=== PATIENT | male | born 1950 | race Caucasian/White ===

== ENCOUNTER 2025-04-13 12:41 | Emergency (ER) | payer MEDICARE, SELFPAY ==
[2025-04-13] VITALS (12 sets, daily range): BP systolic 150–189; BP diastolic 87–125
--- NOTE | 2025-04-13 13:00 | EDRN ---
Pt states he was attempting to move a table and tying up the legs prior to moving it. Pt states he found his L hand numb and unable to make a fist at constance 12:30 and lasted 5 minutes. After that was normal his L mouth and tongue became numb. Pt states
that lasted about 10 minutes. Pt was also diaphoretic during that time. Pt states has no symptoms at this time.
[2025-04-13 13:10] LABS: Glucose - Point of Care 96 mg/dl (70-99)
--- NOTE | 2025-04-13 13:11 | ED.GENMED ---
History of Present Illness
General
Chief Complaint: Numbness
Source: patient and other (Significant other)
Exam Limitations: none
Time Seen by Provider: 04/13/25 12:56
Nursing documentation reviewed up to this point in time: agreed with
History of Present Illness
History of Present Illness:
Patient with history of BPH, presents to ED secondary to sudden onset of left arm/hand numbness/weakness while he was sitting down working, around 12:30 PM. Symptoms lasted about 10 minutes with spontaneous resolution. Shortly afterwards, patient
noticed left facial and tongue numbness sensation, which also lasted approxi-10 to 15 minutes with spontaneous resolution. At the time of evaluation ED, patient is only complaining of 'funny feeling' in his left pinky finger. Denies headache.
Denies dizziness. Denies difficulty with ambulation. Denies difficulty with speech. Denies recent illness. Patient proceeded to take 325 mg aspirin prior to arrival. Denies previous history of similar symptoms. Denies recent illness.
Review of Systems
Review of Systems
Allergies reviewed?: Yes
All Other Systems: ROS reviewed and negative except as documented in HPI and ROS
Constitutional: Reports no symptoms
Respiratory: Reports no symptoms
Cardiac: Reports no symptoms
ABD/GI: Reports no symptoms
Musculoskeletal: Reports no symptoms
Skin: Reports no symptoms
Neurological: Reports weakness and numbness; Denies dizzy or headache
Phy Exam
Physical Exam
Physical Exam:
Physical Exam
General: no apparent distress, not acutely ill. afebrile
Head: nc/at. eomi
Neck: supple. normal range of motion
Heart: s1/s2 regular rate and rhythm.
Lungs: no acute respiratory distress. clear bilaterally
Abdomen: normal bowel sounds. not tender.
Neuro: alert and oriented x 3. no focal sensory/motor deficit. normal speech. no facial droop
Skin: no rash
Psychiatric: well kept. interactive and cooperative
Extremities: no edema. no calf tenderness.
Course
Orders/Labs/Results
Orders:
Orders
04/13/25 12:55
Electrocardiogram (*1) Urgent
Reason for Study: Chest Pain
Cardiac Monitoring- Treatment ONCE
04/13/25 12:56
EKG- Treatment ONCE
04/13/25 13:06
Cardiovascular Evaluation Urgent
Comment: ADD ON
Complete Blood Count/With Diff Urgent
Comprehensive Metabolic Panel Urgent
Ferritin Urgent
Comment: ADD ON
Folate Urgent
Comment: ADD ON
Glycohemoglobin (HgbA1c) Urgent
Prothrombin Time Urgent
TSH Reflex To Free T4 Urgent
Comment: ADD ON
Troponin I Urgent
Vitamin B12 Urgent
Comment: ADD ON
04/13/25 13:09
CT HEAD STROKE ALERT W/o Cont Urgent
Comment:
Reason For Exam: LUE weakness/numbness, l facial numbness
04/13/25 13:13
CT HEAD/NECK ANG STROKE ALERT Urgent
Comment:
Reason For Exam: left-sided numbness
04/13/25 13:37
Clopidogrel Bisulfate [Plavix] 300 mg PO NOW STA
04/13/25 13:38
MR Brain Without Contrast Routine
Comment:
Reason For Exam: Left-sided numbness, weakness
Recent pill cam endoscopy?: No
04/13/25 13:40
Patient Education As Directed
Type: Stroke education packet
04/13/25 15:07
Add On- LAB Routine
Tests Added?: folate, ferritin, TSH reflex, B12, lipid profile, hbA1c
04/13/25 18:00
Atorvastatin [Lipitor] 40 mg PO QPM
04/14/25 08:00
Aspirin Chewable [Low Strength Aspirin] 81 mg PO DAILY
Clopidogrel Bisulfate [Plavix] 75 mg PO DAILY
Abnormal Lab Results
04/13/25
13:06
RBC 4.41 L 10^6/uL
(4.70-6.10)
MCV 95.7 H fL
(80.0-94.0)
MCH 32.7 H pg
(27.0-31.0)
Monocytes % 11.1 H %
(1.7-9.3)
Glucose 103 H mg/dl
(70-99)
Total Cholesterol 207 H mg/dl
(50-199)
04/13/25 13:06
04/13/25 13:06
Vital Signs
Initial and Last Documented VS:
Initial Vital Signs
Temp Pulse Resp BP Pulse Ox
98.2 F 67 16 185/111 98
04/13/25 12:49 04/13/25 12:49 04/13/25 12:49 04/13/25 12:49 04/13/25 12:49
Last Documented Vital Signs
Temp Pulse Resp BP Pulse Ox
98.2 F 65 13 174/102 99
04/13/25 12:49 04/13/25 16:15 04/13/25 16:15 04/13/25 16:05 04/13/25 18:00
MDM/Problems Addressed
MDM/Problems Addressed:
CT head: No acute findings.
Patient evaluated in ED by Dr. Capellan, neurology. Recommends obtaining MRI brain without contrast. If negative and patient remains asymptomatic, patient can be discharged home with following recommendations: 81 mg aspirin, Plavix 75 mg daily x 3
weeks, along with Lipitor 40 mg, as well as outpatient f/u with pmd/neurology, including outpatient echocardiogram. Recommendations provided to patient/spouse prior to discharge
*Pulse Oximetry
SaO2: 98
Oxygen Mode of Delivery: Room air
Patient hypoxic: no
*EKG
Interpreted by ED Provider?: Yes
EKG Intrepretation Date: 04/13/25
Heart Rate: 63
Rate: normal
Rhythm: sinus
[place]: normal axis
*Critical Care Note
Total Time (30-74mins, 75-104mins- exclusive of procedures): Not Applicable
ED Attending Note
-
Portions of this chart may have been created with voice recognition software.� Occasional wrong word or��sound alike� substitutions may have occurred due to the inherent limitations of voice recognition software.
Discharge Plan
Departure
Patient Disposition: Home (Routine Discharge)
Date of Disposition: 04/13/25
Time of Disposition: 19:11
Patient with high blood pressure during this ER visit?: Yes
Condition: Fair
Discharge Problem:
Brain TIA
Instructions: Transient ischemic attack - ED (DC)
Prescriptions:
New
clopidogrel [Plavix] 75 mg tablet
75 mg PO DAILY Qty: 20 0RF
atorvastatin [Lipitor] 40 mg tablet
40 mg PO DAILY Qty: 30 0RF
No Action
tamsulosin 0.4 mg capsule
0.4 mg PO DAILY
finasteride 5 mg tablet
5 mg PO DAILY
sildenafil 25 mg Tablet
25 mg PO DAILY PRN (Reason: ED)
Referrals:
Danial Selby MD [Active, Neurology]
Wilman Theodore MD [Family Provider, Internal Medicine]
Activity Restrictions/Additional Instructions:
As discussed, please follow-up with your primary care physician and/or referred neurologist for further evaluation and treatment. Please continue to take 81 mg aspirin and Lipitor 40 mg daily along with prescribed Plavix medication x 3 weeks. Your
prescriptions have been sent electronically to [facility] in [place].
Interventions
Interventions:
*Risk Screen - Suicide Last Done: 04/13/25 12:49
*General Assessment Last Done: 04/13/25 19:34
*Neglect/Abuse Screening Last Done: 04/13/25 12:49
*ED- Fall Risk Assessment Last Done: 04/13/25 19:34
*ED COVID-19 Vaccine History Last Done: 04/13/25 19:34
*ED Influenza Vaccine History Last Done: 04/13/25 19:34
*Nursing Disposition Last Done: 04/13/25 19:35
ED- Neurological Assessment Last Done: 04/13/25 13:39
Discharge Date and Time
Discharge Date/Time: 04/13/25 19:35
Print Language: RUSSIAN
--- NOTE | 2025-04-13 13:14 | CON.NEURO4 ---
Addendum entered and electronically signed by Clive Schumacher MD 04/13/25 19:48:
I have seen and examined the patient today along with the nurse practitioner Stefani Patrick and I agree with her assessment and the management plan. The following is my assessment and the management plan.
The patient is a 74 years old male who presented to the hospital with complaint of numbness of left side of the face and left arm along with numbness of the left side of the tongue. The last known normal was at around 12:30 PM today. This
patient's symptoms resolved within about 5 to 10 minutes. On arrival the patient's blood pressure was 185/111. CT head and CTA of head and neck were unremarkable. The NIH stroke scale was 0. He was not a candidate for TNK due to the NIH stroke
scale being 0, and also there was no large vessel occlusion seen.
Neurologic examination:
The patient is alert and oriented x 3,
Speech is clear,
The cranial nerves II to XII are grossly intact,
The motor strength is grossly 5/5 bilaterally,
The sensations are grossly intact,
The cerebellar examination does not show limb ataxia.
The patient likely had a transient ischemic attack. The patient had uncontrolled hypertension when he arrived in the ER. The MRI of the brain did not show an acute intracranial abnormality. The plan is to discharge the patient home on aspirin 81
mg daily, Plavix 75 mg daily and atorvastatin 40 mg daily. The patient will follow-up in the neurology clinic and will have an echocardiogram done as an outpatient. The patient's case was discussed with Dr. Yuri Lara in the ER.
Original Note:
Consultation - Neurology 4
-
CONSULTING PHYSICIAN: Clive Schumacher MD
REFERRING PHYSICIAN: ER/Dr. Lara
DICTATED BY: ROXANNE Kearns
DATE/TIME OF REQUEST: 04/13/25
DATE/TIME OF CONSULTATION: 04/13/25
Reason for Consultation: Stroke Alert
History of Present Illness:
This is a 74-year-old right-handed male who has presented to the hospital with report of transient left tongue and hand paresthesias and weakness. Patient reports that he was in his usual state today when around 1230 he was tying up legs to a table
when suddenly his left hand began tingling and he could not make a fist. This resolved after 5 minutes but then his left face and left side of his tongue started tingling as well, this resolved again after 5 minutes. He took a full dose aspirin at
home. Blood pressure was 185/[address] head and CTA head/neck were obtained on arrival and are negative for any acute abnormalities. NIHSS is currently 0. He is not a candidate for TNK/IAT due to NIHSS 0 and no LVO. Patient denies any
headache, dizziness, vision changes, speech/swallow difficulty. He denies any history of TIA, stroke, or migraine with aura.
Past Medical History: BPH, erectile dysfunction, HLD
Surgical History: MILD, cyst removal
Family History: Reviewed and noncontributory.
Social History: Denies tobacco, alcohol, and illicit drug use.
Allergies: No known allergies.
Home Medications: See below.
Review of Symptoms:
Patient denies any fever, headache, chest pain, shortness of breath, GI or symptoms.
�Per the HPI.�All systems are reviewed negative except above.
Physical Exam:
The patient is afebrile, abdomen is nondistended, breathing is unlabored, skin is warm and dry, no edema.
NIH Stroke Scale:
I performed the NIH stroke scale on the patient on 04/13/25 at 1320. The patient scored 0 points on the NIH stroke scale assessment, which were assigned as follows: See below.
Neurologic Examination:
The patient is awake, alert and oriented x 3. He is able to follow commands and answer questions appropriately. There is no aphasia or dysarthria. On cranial nerve assessment, pupils are 3 mm bilateral, round and reactive to light and
accommodation. Visual larry are full. Extraocular movements are intact. Facial sensations are intact and bilaterally symmetrical, there is no facial asymmetry. Hearing is intact bilaterally to normal conversation volume. Tongue palate and uvula are
midline. Sternocleidomastoid strengths are full bilaterally. Motor strengths are 5/5 bilateral upper and lower extremities on medical research [place] scale. There is no drift or involuntary movement noted. There was no extinction noted on double
simultaneous stimulation. Coordination is intact by finger to nose bilaterally.
Lab Results: See below.
Neuro Imaging:
1. CT Head 04/13/25: No evidence of acute intracranial abnormality. ASPECT score: 10.
2. CTA head/neck 04/13/25: No evidence for hemodynamically significant stenoses involving the common carotid arteries, carotid bulbs, or proximal internal carotid arteries bilaterally. No significant narrowing involving the vertebral or basilar
arteries. No evidence for intracranial high-grade stenosis/large vessel occlusion.
Differentials for the patient's presentation include:
1. Transient left-sided paresthesias and weakness; etiology is likely transient ischemic attack, cannot entirely exclude a small ischemic stroke.
2. Hypertensive urgency.
Patient has the following risk factors for their symptoms: Uncontrolled HTN, HLD, age
IV Tenecteplase/IAT candidacy: Not a candidate due to resolution of symptoms, low NIHSS.
Recommendations:
-Provide clopidogrel 300mg x1 now. Continue DAPT with aspirin 81mg and clopidogrel 75mg daily for 21 days. After 21 days, stop clopidogrel and continue aspirin 81mg daily monotherapy.
-Permissive hypertension SBP<220, DBP<120 until 04/14/25 at 1230, then goal normotension.
-MRI brain noncontrast pending.
-LDL goal <70. Lipid panel is pending. Initiate atorvastatin 40mg daily.
-Goal normoglycemia, hbA1c is pending.
-Checking blood work for metabolic abnormalities.
-NIHSS and neurological checks per unit guidelines.
-Provide patient with a stroke education packet.
-DVT prophylaxis.
Discussed patient care with: Dr. Schumacher, the patient, patient's spouse
Vital Signs and Labs
-
Vital Signs and Labs:
Vital Signs
Temp Pulse Resp BP Pulse Ox
98.2 F 67 16 185/111 98
04/13/25 12:49 04/13/25 12:49 04/13/25 12:49 04/13/25 12:49 04/13/25 13:14
NIH Stroke Score
Subsequent NIH Scale
Date of Subsequent NIH Scale: 04/13/25
Time of Subsequent NIH Scale: 13:20
NIH Stroke Score
Level of Consciousness: 0 - Alert
LOC Questions: 0-Answers both correctly
LOC Commands: 0-Performs both correctly
Best Horizontal Gaze: 0-Normal
Visual Larry: 0=Normal, no visual loss
Facial Palsy: 0=Normal, symmetrical
Motor - Right Arm: 0=No drift 10 seconds
Motor - Left Arm: 0=No drift 10 seconds
Motor - Right Le-No drift 5 seconds
Motor - Left Le-No drift 5 seconds
Limb Ataxia: 0-Absent
Sensation: 0-Normal
Best Language: 0-No aphasia
Dysarthria: 0-Normal
Extinction and Inattention: 0-No abnormality
NIH Total Score:: 0
Modified [place] (mRS) Score
Modified [place] Scale (mRS): No symptoms
Score: 0
Alteplase Contraindication
Inclusion and Exclusion criteria reviewed: Yes
--- NOTE | 2025-04-13 13:28 | EDRN ---
Dr. Schumacher saw pt in CT though did not examine pt, In room now assessing pt. Dr. Jane Briseno.
[2025-04-13] MEDS: PLAVIX 300 MG PO (13:44)
[2025-04-13 13:45] LABS: Hematocrit 42.2 % (39.0-52.0); Hemoglobin 14.4 g/dL (13.0-18.0); Mean Corp Hgb Conc. 34.1 g/dL (33.0-37.0); Mean Corpuscular Volume 95.7 fL (80.0-94.0); Nucleated Red Blood Cells % 0 % (-); Platelet Count 223 10^3/uL (130-400); Red Cell Dist. Width 12.9 % (11.5-14.5)
--- NOTE | 2025-04-13 13:49 | EDRN ---
Pt OOB to BR at this time.
[2025-04-13 13:55] LABS: INR 0.93; PT 12.8 Sec (11.4-14.6)
[2025-04-13 13:57] LABS: ALT (SGPT) 25 U/L (0-50); AST (SGOT) 25 U/L (17-59); Albumin 4.3 g/dl (3.5-5.0); Alkaline Phosphatase 96 U/L (38-126); Blood Urea Nitrogen 17 mg/dl (9-20); Calcium 9.2 mg/dl (8.4-10.2); Carbon Dioxide 27 mmol/L (22-30); Chloride 104 mmol/L (98-107); Glucose 103 mg/dl (70-99); Potassium 4.3 mmol/L (3.5-5.1); Sodium 137 mmol/L (135-145); Total Protein 7.0 g/dl (6.3-8.2); eGFR > 60.00
[2025-04-13 14:09] LABS: Troponin I < 0.012 ng/ml
--- NOTE | 2025-04-13 14:11 | EDRN ---
Dr. Lara said pt can eat and he was administered a boxed lunch at this time. Dr. Lara TT'd neurologist, Dr. Schumacher about admission. Pt was told by MRI he will have an MRI later today or this evening.
--- NOTE | 2025-04-13 15:24 | EDRN ---
Dr. Lara in to speak w/ pt as no disposition prior to completion of MRI and possible discharge. This RN voiced to Dr. Lara concern over pt's high BP w/ Systolic BP 170's-180's and DBP high most BPs > 100.
[2025-04-13 15:48] LABS: HDL Cholesterol 63 mg/dl; LDL Cholesterol, Calculated 123 mg/dl; Very Low Density Lipoprotein 21 mg/dl (0-30)
[2025-04-13 16:37] LABS: Ferritin 187.0 ng/ml (17.9-464.0)
[2025-04-13 17:08] LABS: Folate 8.1 ng/ml (2.76-20); Vitamin B12 250 pg/ml (239-931)
[2025-04-13] MEDS: LIPITOR 40 MG PO (19:17)
[2025-04-14 09:04] LABS: Glycohemoglobin (HgbA1c) 5.5 % (4.0-5.9)
== END 2025-04-13 19:35 | disposition home or self-care (01) ==
LOC: EMR 12:41
PROVIDERS: Emergency Medicine; EMERGENCY PHYSICIAN Emergency Medicine; FAMILY PHYSICIAN Internal Medicine Geriatric Medicine
DX: G45.9 Transient cerebral ischemic attack, unspecified (principal); E78.00 Pure hypercholesterolemia, unspecified; N40.0 Benign prostatic hyperplasia without lower urinary tract symptoms; Z79.02 Long term (current) use of antithrombotics/antiplatelets; Z79.82 Long term (current) use of aspirin
CPT/HCPCS: 99284; 70450; 70496; 70498; 70551; 80053; 80061; 82607; 82728; 82746; 82962; 83036; 84443; 84484; 85025; 85610; 93005; Q9967

== ENCOUNTER → 2025-04-21 13:35 | Outpatient (REF) | payer MEDICARE, SELFPAY | LOC: RCS 13:35 | PROVIDERS: ATTENDING PHYSICIAN Nurse Practitioner Family | DX: G45.9 Transient cerebral ischemic attack, unspecified (principal); R20.2 Paresthesia of skin | CPT/HCPCS: 93225; 93226 ==

== ENCOUNTER → 2025-04-30 16:30 | Outpatient (REF) | payer MEDICARE, SELFPAY | LOC: RCS 16:30 | PROVIDERS: ATTENDING PHYSICIAN Nurse Practitioner Family; FAMILY PHYSICIAN Internal Medicine Geriatric Medicine | DX: G45.9 Transient cerebral ischemic attack, unspecified (principal); R20.2 Paresthesia of skin | CPT/HCPCS: 93306 ==